=== PATIENT | female | born 1965 | race Caucasian/White ===

== ENCOUNTER 2016-09-16 15:15 | Emergency (ER) | payer OTHER, MEDICAID ==
[~2016-09-16] VITALS: Ht 162.6 cm; Wt 68.5 kg
[~2016-09-16 15:15] MED LIST: AMLO5TAB7 GT; CALC500C17 GT; CARB100S PO; CLOB2.5S GT; KEP500L GT; LANTUS SUBQ; LEVO100S2 GT; METO25TA GT; POTA10TA10 GT; SUCR1TAB35 GT; SYN.075 GT; WARF6TAB SUBQ; [UNRECOGNIZED DRUG - CODE] GT; [UNRECOGNIZED DRUG - CODE] GT
--- NOTE | 2016-09-16 15:15 | NUR ---
Patient [facility], transferred to bed 4. RN evaluating patient at bedside.
--- NOTE | 2016-09-16 15:35 | NUR ---
PATIENT [facility] FROM [facility]. WITH C/O NON FUNCTIONAL G-TUBE NON VERBAL/CONTRACTED EXTREMITIES.HX: CELEBRAL PALSY,SEIZURE,ENCEPHALOPATHY,HYPOTHYROIDISM,DYSPHAGIA; SKIN IS PINK/WARM/DRY; AAOX4 WITH EVEN AND STEADY GAIT; LUNGS CLEAR BL; HR EVEN AND REGULAR; PT DENIES ANY FEVER, CP, SOB, OR COUGH AT THIS TIME; PATIENT STATES PAIN OF 0/10 AT THIS TIME; VSS; PATIENT POSITIONED FOR COMFORT; HOB ELEVATED; BEDRAILS UP X2; BED DOWN. ER MD MADE AWARE OF PT STATUS.
[2016-09-16 15:38] VITALS: BP 121/83
[2016-09-16] MEDS ORDERED: POTA20SO15 GT (16:14)
[2016-09-16] MEDS ORDERED: RIVA20TA GT (16:14)
[2016-09-16] MEDS ORDERED: [UNRECOGNIZED DRUG - CODE] BOTH EYES (16:14)
[2016-09-16] MEDS ORDERED: FAMO-90 GT (16:14)
--- NOTE | 2016-09-16 16:19 | NUR ---
Dr. Lopez at bedside.
--- NOTE | 2016-09-16 16:25 | NUR ---
DR HOLLOWAY AT BEDSIDE, REPLACED WITH 18 G G-TUBE, PROCEDURE TOLERATED WELL
[2016-09-16 17:48] VITALS: BP 151/86
--- NOTE | 2016-09-16 17:48 | NUR ---
Patient to be transferred BACK To [facility] VIA [facility]. Is being transferred To BACK TO HALFWAY. Receiving facility has accepting physician and available space. ER physician has signed transfer form. Patient or responsible democrat has agreed to transfer and signed form. Patient belongings inventoried and will be sent with patient. Copy of nursing notes, lab reports, EKG, Physicians Orders and X-rays to be sent with patient. Report called at receiving facility.
== END 2016-09-16 17:48 ==
LOC: MED 15:15
DX: Z46.59 Encounter for fitting and adjustment of other gastrointestinal appliance and device (principal); E11.9 Type 2 diabetes mellitus without complications; I10 Essential (primary) hypertension; Z79.4 Long term (current) use of insulin; Z88.0 Allergy status to penicillin; Z88.1 Allergy status to other antibiotic agents
CPT/HCPCS: 43760; 74241; 82948; 99284; Q0092